=== PATIENT | male | born 1970 | race Caucasian/White ===

== ENCOUNTER 2017-03-10 20:55 | Emergency (ER) | payer OTHER ==
[~2017-03-10] VITALS: Ht 182.9 cm; Wt 140.0 kg
[2017-03-10 20:56] VITALS: BP 158/77; PULSE 75; RESP 16; TEMP 97.9; O2SAT 96
[2017-03-10] MEDS ORDERED: IBUP800T23 PO (21:52)
[2017-03-10] MEDS ORDERED: CYCL1TAB29 PO (21:52)
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
[2017-03-10] MEDS ORDERED: CYCLOBENZAPRINE HCL 10 MG TAB PO ONE (22:00)
[2017-03-10] MEDS ORDERED: IBUPROFEN 800 MG TAB PO ONE (22:00)
== END 2017-03-10 22:40 | disposition home or self-care (01) ==
LOC: NEPK 20:55
DX: S29.012A Strain of muscle and tendon of back wall of thorax, initial encounter (principal); M62.830 Muscle spasm of back; V89.2XXA Person injured in unspecified motor-vehicle accident, traffic, initial encounter; Y92.414 Local residential or business street as the place of occurrence of the external cause
CPT/HCPCS: 99283